=== PATIENT | female | born 1985 | race African-American/Black ===

== ENCOUNTER → 2021-06-03 | Outpatient (CLI) | payer OTHER | LOC: MHCPAIN 08:48 | DX: M47.817 Spondylosis without myelopathy or radiculopathy, lumbosacral region (principal); M53.3 Sacrococcygeal disorders, not elsewhere classified; M54.50 Low back pain, unspecified; M25.561 Pain in right knee | CPT/HCPCS: G0463 ==

== ENCOUNTER → 2021-06-16 | Outpatient (CLI) | payer OTHER | LOC: MHCPAIN 13:39 | DX: M47.817 Spondylosis without myelopathy or radiculopathy, lumbosacral region (principal); M53.3 Sacrococcygeal disorders, not elsewhere classified | CPT/HCPCS: G0260; J1040; Q9967 ==

== ENCOUNTER → 2021-06-30 | Outpatient (CLI) | payer OTHER | LOC: MHCPAIN 07:57 | DX: M47.817 Spondylosis without myelopathy or radiculopathy, lumbosacral region (principal); M53.3 Sacrococcygeal disorders, not elsewhere classified | CPT/HCPCS: G0463 ==

== ENCOUNTER 2021-07-08 08:15 | Outpatient (RCR) | payer OTHER | END 2021-07-13 | disposition home or self-care (01) | LOC: WSPT | DX: M47.896 Other spondylosis, lumbar region (principal) ==

== ENCOUNTER 2021-08-07 08:15 | Outpatient (RCR) | payer OTHER | END 2021-08-13 | disposition home or self-care (01) | LOC: WSC | DX: M47.896 Other spondylosis, lumbar region (principal) ==